=== PATIENT | female | born 2005 | race Caucasian/White ===

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

== ENCOUNTER 2023-01-01 11:05 | Emergency (ER) | payer OTHER ==
[~2023-01-01] VITALS: Ht 175.3 cm; Wt 97.7 kg
[~2023-01-01 11:05] MED LIST changes: +BUPR150T12 PO; +BUSP10TA PO; +IBUP200T46 PO; +TRAZ-252 PO
[2023-01-01 11:32] VITALS: BP 139/89
[2023-01-01 12:11] LABS: HEMATOCRIT 40.6 % (36.0-47.0); HEMOGLOBIN 12.8 g/dl (12.0-15.5); MEAN CORPUSCULAR HEMOGLOBIN 28.8 pg (27.0-33.0); MEAN CORPUSCULAR HGB CONC 31.5 g/dl (32.0-36.5); MEAN CORPUSCULAR VOLUME 91.2 fl (80.0-96.0); PLATELET COUNT, AUTOMATED 324 10^3/uL (150-450); RED BLOOD COUNT 4.45 10^6/uL (4.00-5.40); WHITE BLOOD COUNT 7.5 10^3/uL (4.0-10.0)
[2023-01-01 12:33] LABS: ETHYL ALCOHOL (ETHANOL) < 0.003 % (0.000-0.010)
[2023-01-01 12:35] LABS: ACETAMINOPHEN LEVEL < 2.0 UG/ML (10.0-20.0); ALBUMIN 3.9 G/DL (3.2-5.2); ALKALINE PHOSPHATASE 95 U/L (46-116); ALT/SGPT 20 U/L (7.0-40); AST/SGOT 19 U/L (<34); BILIRUBIN,DIRECT 0.2 MG/DL (<0.4); BILIRUBIN,TOTAL 0.4 MG/DL (0.3-1.2); BLOOD UREA NITROGEN 14 MG/DL (9-23); CALCIUM LEVEL 9.1 MG/DL (8.5-10.1); CARBON DIOXIDE LEVEL 28 MMOL/L (20-31); CHLORIDE LEVEL 106 MMOL/L (98-107); CREATININE FOR GFR 0.83 MG/DL (0.55-1.30); GLUCOSE, FASTING 88 MG/DL (60-100); POTASSIUM SERUM 4.1 MMOL/L (3.5-5.1); SALICYLATE LEVEL < 3.0 MG/DL (<30); SODIUM LEVEL 138 MMOL/L (136-145); TOTAL PROTEIN 7.2 G/DL (5.7-8.2)
[2023-01-01 12:37] LABS: THYROID STIMULATING HORMONE 0.799 uIU/ML (0.48-4.17)
[2023-01-01 13:22] LABS: HCG, SERUM QUALITATIVE NEGATIVE (NEGATIVE)
[2023-01-01] MEDS ORDERED: IBUPROFEN 400MG TAB PO ONE (16:15)
== END 2023-01-01 16:25 | disposition home or self-care (01) ==
LOC: M ED 11:05
DX: F43.20 Adjustment disorder, unspecified (principal); F32.9 Major depressive disorder, single episode, unspecified

== ENCOUNTER 2023-05-06 01:45 | Inpatient (IN) | payer OTHER ==
[~2023-05-06] VITALS: Ht 175.3 cm; Wt 100.5 kg
[2023-05-06] MEDS ORDERED: IBUP1TAB6 PO (02:32)
[2023-05-06] MEDS ORDERED: TRAZ-252 PO (02:32)
[2023-05-06] MEDS ORDERED: HOME MED LIST COMPLETE! XX SCH (02:35)
[2023-05-06 02:47] LABS: HEMATOCRIT 37.3 % (36.0-47.0); MEAN CORPUSCULAR HEMOGLOBIN 29.1 pg (27.0-33.0); MEAN CORPUSCULAR HGB CONC 32.2 g/dl (32.0-36.5); MEAN CORPUSCULAR VOLUME 90.3 fl (80.0-96.0); PLATELET COUNT, AUTOMATED 294 10^3/uL (150-450); RED BLOOD COUNT 4.13 10^6/uL (4.00-5.40); WHITE BLOOD COUNT 9.3 10^3/uL (4.0-10.0)
[2023-05-06 03:16] LABS: AMPHETAMINES LEVEL URINE NEGATIVE (NEGATIVE); BARBITURATES URINE NEGATIVE (NEGATIVE)
[2023-05-06 03:17] LABS: BENZODIAZEPINES URINE NEGATIVE (NEGATIVE); CANNABINOIDS URINE NEGATIVE (NEGATIVE); COCAINE METABOLITE URINE NEGATIVE (NEGATIVE); METHADONE URINE NEGATIVE (NEGATIVE); OPIATES URINE NEGATIVE (NEGATIVE); PHENCYCLIDINE URINE NEGATIVE (NEGATIVE)
[2023-05-06 03:19] LABS: ETHYL ALCOHOL (ETHANOL) < 0.003 % (0.000-0.010)
[2023-05-06 03:21] LABS: ACETAMINOPHEN LEVEL < 2.0 UG/ML (10.0-20.0); ALKALINE PHOSPHATASE 90 U/L (46-116); ALT/SGPT 13 U/L (7.0-40); AST/SGOT 17 U/L (<34); BILIRUBIN,DIRECT 0.2 MG/DL (<0.4); BILIRUBIN,TOTAL 0.4 MG/DL (0.3-1.2); BLOOD UREA NITROGEN 12 MG/DL (9-23); CALCIUM LEVEL 9.6 MG/DL (8.5-10.1); CARBON DIOXIDE LEVEL 23 MMOL/L (20-31); CHLORIDE LEVEL 109 MMOL/L (98-107); CREATININE FOR GFR 0.88 MG/DL (0.55-1.30); GLUCOSE, FASTING 79 MG/DL (60-100); SALICYLATE LEVEL < 3.0 MG/DL (<30); SODIUM LEVEL 142 MMOL/L (136-145); TOTAL PROTEIN 7.3 G/DL (5.7-8.2)
[2023-05-06 03:23] LABS: THYROID STIMULATING HORMONE 2.484 uIU/ML (0.48-4.17)
[2023-05-06] MEDS ORDERED: diphenhydrAMINE 25MG CAP PO PRN (04:40)
[2023-05-06] MEDS ORDERED: MAALOX 30 ML SUSP *UDC PO PRN (04:40)
[2023-05-06] MEDS ORDERED: ACETAMINOPHEN TAB 650MG DOSE (2X325MG) PO PRN (04:40)
[2023-05-06] MEDS ORDERED: IBUPROFEN 400MG TAB PO PRN (04:40)
[2023-05-06] MEDS ORDERED: MOM 30ML SUSPENSION UDC PO PRN (04:40)
[2023-05-06 05:22] VITALS: BP 123/85; TEMP 97.6; O2SAT 98
[2023-05-06] MEDS: VENLAFAXINE **XR** 37.5 MG CAPSULE PO SCH (12:00)
[2023-05-06 18:11] VITALS: BP 117/71; TEMP 97.4; O2SAT 100
[2023-05-06] MEDS: traZODone 50 MG TAB PO PRN (20:09)
[2023-05-07 06:37] VITALS: BP 107/57; TEMP 97.9; O2SAT 100
[2023-05-07] MEDS: VENLAFAXINE **XR** 37.5 MG CAPSULE PO SCH (08:09)
[2023-05-07 19:10] VITALS: BP 138/71; TEMP 96.9
[2023-05-07] MEDS: traZODone 50 MG TAB PO PRN (21:46)
[2023-05-08] MEDS: VENLAFAXINE **XR** 37.5 MG CAPSULE PO SCH (09:56)
[2023-05-08 18:37] VITALS: BP 137/64; TEMP 97.7
[2023-05-08] MEDS: traZODone 50 MG TAB PO PRN (21:47)
[2023-05-09 06:02] VITALS: BP 118/77; TEMP 97.9; O2SAT 100
[2023-05-09] MEDS ORDERED: VENL37.598 PO (08:15)
[2023-05-09] MEDS ORDERED: TRAZ-252 PO (08:15)
[2023-05-09] MEDS: VENLAFAXINE **XR** 37.5 MG CAPSULE PO SCH (09:23)
== END 2023-05-09 10:26 | disposition home or self-care (01) | DRG 882 ==
LOC: M ED 01:45 → M ED INP 04:36 → M PSY 05:15
PROVIDERS: ADMIT Student in an Organized Health Care Education/Training Program; ATTEND Student in an Organized Health Care Education/Training Program
DX: F43.10 Post-traumatic stress disorder, unspecified (principal); R45.851 Suicidal ideations; F32.9 Major depressive disorder, single episode, unspecified; M54.9 Dorsalgia, unspecified; G89.29 Other chronic pain; Z86.16 Personal history of COVID-19; Z20.822 Contact with and (suspected) exposure to COVID-19; Z81.8 Family history of other mental and behavioral disorders

== ENCOUNTER 2023-05-25 20:13 | Emergency (ER) | payer OTHER ==
[~2023-05-25] VITALS: Ht 175.3 cm; Wt 97.6 kg
[~2023-05-25 20:13] MED LIST changes: +IBUP1TAB6 PO; +VENL37.598 PO
[2023-05-25] MEDS ORDERED: NS 1,000 ML IV ONE (21:05)
[2023-05-25] MEDS ORDERED: ONDANSETRON 4MG 2ML VIAL IV ONE (21:05)
[2023-05-25 21:46] LABS: BLOOD UREA NITROGEN 14 MG/DL (9-23); CALCIUM LEVEL 9.7 MG/DL (8.5-10.1); CARBON DIOXIDE LEVEL 28 MMOL/L (20-31); CHLORIDE LEVEL 102 MMOL/L (98-107); CREATININE FOR GFR 0.77 MG/DL (0.55-1.30); GLUCOSE, FASTING 81 MG/DL (60-100); SODIUM LEVEL 139 MMOL/L (136-145)
[2023-05-25] MEDS ORDERED: ONDA4TAB6 PO (22:29)
[2023-05-25] MEDS ORDERED: ONDANSETRON 4MG ORAL DISINTEGRATING TAB PO ONE (22:30)
[2023-05-25 22:41] VITALS: BP 124/75; TEMP 98.6; O2SAT 100
== END 2023-05-25 22:42 | disposition home or self-care (01) ==
LOC: EDBD 20:13 → M ED 20:13
DX: R11.2 Nausea with vomiting, unspecified (principal)
CPT/HCPCS: 80048; 96361; 96374; 99284; J2405

== ENCOUNTER 2023-06-07 06:22 | Inpatient (IN) | payer OTHER ==
[~2023-06-07] VITALS: Ht 175.3 cm; Wt 103.0 kg
[~2023-06-07 06:22] MED LIST changes: +ONDA4TAB6 PO
[2023-06-07] MEDS ORDERED: NS 1,000 ML IV ONE (06:35)
[2023-06-07 07:04] LABS: BASO % 0.3 % (0.0-1.0); EOS # 0.1 10^3/uL (0.0-0.5); EOS % 0.9 % (0.0-3.0); HEMOGLOBIN 12.1 g/dl (12.0-15.5); LYMPH # 2.9 10^3/uL (1.5-5.0); LYMPH % 28.1 % (24.0-44.0); MEAN CORPUSCULAR HEMOGLOBIN 28.9 pg (27.0-33.0); MEAN CORPUSCULAR HGB CONC 31.8 g/dl (32.0-36.5); MEAN CORPUSCULAR VOLUME 90.7 fl (80.0-96.0); MONO # 0.8 10^3/uL (0.0-0.8); MONO % 7.8 % (2.0-8.0); NEUTROPHILS # 6.5 10^3/uL (1.5-8.5); NEUTROPHILS % 62.6 % (36.0-66.0); PLATELET COUNT, AUTOMATED 304 10^3/uL (150-450); RED BLOOD COUNT 4.19 10^6/uL (4.00-5.40); WHITE BLOOD COUNT 10.5 10^3/uL (4.0-10.0)
[2023-06-07] MEDS ORDERED: CHARCOAL ACTIVATED LIQUID 25GM/120ML BTL PO ONE (07:05)
[2023-06-07 07:27] LABS: ETHYL ALCOHOL (ETHANOL) 0.003 % (0.000-0.010)
[2023-06-07 07:28] LABS: HCG, SERUM QUALITATIVE NEGATIVE (NEGATIVE)
[2023-06-07 07:29] LABS: ACETAMINOPHEN LEVEL < 2.0 UG/ML (10.0-20.0); ALBUMIN 3.6 G/DL (3.2-5.2); ALKALINE PHOSPHATASE 105 U/L (46-116); ALT/SGPT 44 U/L (7.0-40); AST/SGOT 25 U/L (<34); BILIRUBIN,DIRECT 0.1 MG/DL (<0.4); BILIRUBIN,TOTAL 0.3 MG/DL (0.3-1.2); BLOOD UREA NITROGEN 10 MG/DL (9-23); CALCIUM LEVEL 8.8 MG/DL (8.5-10.1); CARBON DIOXIDE LEVEL 28 MMOL/L (20-31); CHLORIDE LEVEL 107 MMOL/L (98-107); CPK CREATINE PHOSPHOKINASE 113 U/L (34-145); GLUCOSE, FASTING 83 MG/DL (60-100); POTASSIUM SERUM 3.8 MMOL/L (3.5-5.1); SALICYLATE LEVEL < 3.0 MG/DL (<30); SODIUM LEVEL 143 MMOL/L (136-145); TOTAL PROTEIN 6.8 G/DL (5.7-8.2)
[2023-06-07 07:31] LABS: THYROID STIMULATING HORMONE 2.154 uIU/ML (0.48-4.17)
[2023-06-07 07:37] LABS: RSV AMPLIFICATION NEGATIVE (NEGATIVE)
[2023-06-07 08:32] LABS: AMPHETAMINES LEVEL URINE NEGATIVE (NEGATIVE); BARBITURATES URINE NEGATIVE (NEGATIVE); BENZODIAZEPINES URINE NEGATIVE (NEGATIVE); CANNABINOIDS URINE NEGATIVE (NEGATIVE); COCAINE METABOLITE URINE NEGATIVE (NEGATIVE); METHADONE URINE NEGATIVE (NEGATIVE); OPIATES URINE NEGATIVE (NEGATIVE); PHENCYCLIDINE URINE NEGATIVE (NEGATIVE)
[2023-06-07] MEDS ORDERED: TRAZ-252 PO (19:53)
[2023-06-07] MEDS ORDERED: HOME MED LIST COMPLETE! XX SCH (19:55)
[2023-06-09] MEDS ORDERED: ACETAMINOPHEN TAB 650MG DOSE (2X325MG) PO ONE (22:00)
[2023-06-10] MEDS ORDERED: ACETAMINOPHEN TAB 650MG DOSE (2X325MG) PO PRN (14:50)
[2023-06-10] MEDS ORDERED: MOM 30ML SUSPENSION UDC PO PRN (14:50)
[2023-06-10] MEDS ORDERED: MAALOX 30 ML SUSP *UDC PO PRN (14:50)
[2023-06-10] MEDS ORDERED: IBUPROFEN 400MG TAB PO PRN (14:50)
[2023-06-10 17:08] VITALS: BP 127/71; TEMP 97.5; O2SAT 100
[2023-06-10] MEDS ORDERED: SODIUM CHLORIDE 0.9% NASAL GEL 15GM (AYR) PRN (19:40)
[2023-06-11 06:06] VITALS: BP 102/54; TEMP 96.8; O2SAT 100
[2023-06-11] MEDS: SODIUM CHLORIDE NASAL 0.65% SPRAY BTL (OCEAN) PRN ×3 (06:08→19:32)
[2023-06-11 18:41] VITALS: BP 121/72; TEMP 97.2; O2SAT 99
[2023-06-11] MEDS: diphenhydrAMINE 25MG CAP PO PRN (21:32)
[2023-06-12 05:56] VITALS: BP 111/62; TEMP 97.5; O2SAT 100
[2023-06-12 16:09] VITALS: BP 131/81; TEMP 97.6
[2023-06-12] MEDS: diphenhydrAMINE 25MG CAP PO PRN (21:37)
[2023-06-12] MEDS ORDERED: traZODone 50 MG TAB PO ONE (21:50)
[2023-06-12] MEDS: SODIUM CHLORIDE NASAL 0.65% SPRAY BTL (OCEAN) PRN (22:38)
[2023-06-13 06:31] VITALS: BP 125/73; TEMP 97.8; O2SAT 100
[2023-06-13 09:59] VITALS: BP 125/73; TEMP 97.8; O2SAT 100
[2023-06-13 17:57] VITALS: BP 115/69; TEMP 97.5; O2SAT 99
[2023-06-13] MEDS ORDERED: traZODone 50 MG TAB PO PRN (21:50)
[2023-06-13] MEDS: diphenhydrAMINE 25MG CAP PO PRN (21:51)
[2023-06-14 06:46] VITALS: BP 114/78; TEMP 97.4; O2SAT 100
== END 2023-06-14 11:00 | disposition home or self-care (01) | DRG 882 ==
LOC: M ED 06:22 → M ED INP 06-10 14:48 → M PSY 06-10 17:02
PROVIDERS: ADMIT Student in an Organized Health Care Education/Training Program; ATTEND Student in an Organized Health Care Education/Training Program
DX: F43.10 Post-traumatic stress disorder, unspecified (principal); R45.851 Suicidal ideations; F60.3 Borderline personality disorder; F32.9 Major depressive disorder, single episode, unspecified; Z91.52 Personal history of nonsuicidal self-harm; Z86.16 Personal history of COVID-19; Z91.82 Personal history of military deployment; Z20.822 Contact with and (suspected) exposure to COVID-19; Z81.8 Family history of other mental and behavioral disorders; Z79.899 Other long term (current) drug therapy

== ENCOUNTER 2023-08-16 14:44 | Emergency (ER) | payer OTHER ==
[~2023-08-16] VITALS: Ht 175.3 cm; Wt 100.0 kg
[2023-08-16 14:45] VITALS: BP 124/80; TEMP 97.9
== END 2023-08-16 17:08 | disposition home or self-care (01) ==
LOC: M ED 14:44
DX: R05.9 Cough, unspecified (principal); B34.8 Other viral infections of unspecified site; Z79.899 Other long term (current) drug therapy

== ENCOUNTER 2023-09-14 19:13 | Emergency (ER) | payer OTHER ==
[~2023-09-14] VITALS: Ht 175.3 cm; Wt 97.5 kg
[2023-09-14] MEDS ORDERED: IBUP80TA PO (19:23)
[2023-09-14 20:46] LABS: BASO % 0.3 % (0.0-1.0); HEMOGLOBIN 12.9 g/dl (12.0-15.5); LYMPH # 1.1 10^3/uL (1.5-5.0); LYMPH % 8.8 % (24.0-44.0); MEAN CORPUSCULAR HEMOGLOBIN 28.8 pg (27.0-33.0); MEAN CORPUSCULAR HGB CONC 32.3 g/dl (32.0-36.5); MEAN CORPUSCULAR VOLUME 89.3 fl (80.0-96.0); MONO # 0.4 10^3/uL (0.0-0.8); MONO % 3.1 % (2.0-8.0); NEUTROPHILS # 10.6 10^3/uL (1.5-8.5); NEUTROPHILS % 87.4 % (36.0-66.0); PLATELET COUNT, AUTOMATED 365 10^3/uL (150-450); RED BLOOD COUNT 4.48 10^6/uL (4.00-5.40); WHITE BLOOD COUNT 12.1 10^3/uL (4.0-10.0)
[2023-09-14 20:57] VITALS: BP 124/72; TEMP 98.3; O2SAT 100
[2023-09-14 21:12] LABS: BLOOD UREA NITROGEN 11 MG/DL (9-23); CALCIUM LEVEL 9.9 MG/DL (8.5-10.1); CARBON DIOXIDE LEVEL 24 MMOL/L (20-31); CHLORIDE LEVEL 107 MMOL/L (98-107); CREATININE FOR GFR 0.82 MG/DL (0.55-1.30); GLUCOSE, FASTING 82 MG/DL (60-100); POTASSIUM SERUM 4.2 MMOL/L (3.5-5.1); SODIUM LEVEL 143 MMOL/L (136-145)
== END 2023-09-14 23:25 | disposition left against medical advice (07) ==
LOC: M ED 19:13
DX: Z53.21 Procedure and treatment not carried out due to patient leaving prior to being seen by health care provider (principal)